=== PATIENT | male | born 1950 | race Caucasian/White ===

== ENCOUNTER → 2020-09-23 | Outpatient (CLI) | payer MEDICARE, OTHER ==
[~2020-09-23] MED LIST: ACUL0.5S OS; TIMO0.5S29 OS
== END ==
LOC: M LABSMTC 12:59
PROVIDERS: ATTEND Anesthesiology
DX: Z20.828 Contact with and (suspected) exposure to other viral communicable diseases (principal); Z11.59 Encounter for screening for other viral diseases

== ENCOUNTER 2020-09-28 09:56 | Day surgery (SDC) | payer MEDICARE ==
[~2020-09-28] VITALS: Ht 190.5 cm; Wt 87.6 kg
[~2020-09-28 09:56] MED LIST changes: +NS 1,000 ML IV ONE
[2020-09-28] MEDS ORDERED: fentaNYL 100 MCG/2 ML INJECTION (J3010) As Ordered ONE (12:32)
[2020-09-28] MEDS ORDERED: propofoL 200 MG/20 ML VIAL As Ordered ONE ×2 (12:38→12:55)
[2020-09-28] MEDS ORDERED: LIDOCAINE 2% 100MG/5ML SDV (FOR ANES.) As Ordered ONE (12:38)
--- NOTE | 2020-09-28 12:44 | ROOR ---
Patient Name: Farshad Wong Procedure Date: 09/28/2020 12:27 PM Date of : 1950 Age: 70 Room: [facility] Gender: Male Note Status: Finalized Procedure: Upper Endoscopy + Biopsies Indications: Family history of gastric cancer Providers: Mahendra Meadows MD Referring MD: DONNA AYALA JR, MD Requesting Provider: Medicines: Monitored Anesthesia Care Complications: No immediate complications. Procedure: Pre-Anesthesia Assessment: - The heart rate, respiratory rate, oxygen saturations, blood pressure, adequacy of pulmonary ventilation, and response to care were monitored throughout the procedure. The Endoscope was introduced through the mouth, and advanced to the second part of duodenum. The upper GI endoscopy was accomplished without difficulty. The patient tolerated the procedure well. Findings: The Z-line was regular and was found 45 cm from the incisors. Multiple biopsies were obtained with cold forceps for evaluation to rule out Headley's Esophagus randomly at the gastroesophageal junction. Localized mild inflammation characterized by congestion (edema) and erosions was found on the greater curvature of the stomach. Biopsies were taken with a cold forceps for Helicobacter pylori testing. The exam of the duodenum was otherwise normal. Impression: - Z-line regular, 45 cm from the incisors. - Mucosal changes suspicious for gastritis. Biopsied. - Multiple biopsies were obtained at the gastroesophageal junction. - The examination was otherwise normal. Recommendation: - Patient has a contact number available for emergencies. The signs and symptoms of potential delayed complications were discussed with the patient. Return to normal activities tomorrow. Written discharge instructions were provided to the patient. - High fiber diet. - Discharge patient to home. - Follow an antireflux regimen. - Continue present medications. - Await pathology results. - Telephone GI clinic for pathology results in 1 week. - Return to referring physician. - The findings and recommendations were discussed with the patient's family. Procedure Code(s): --- Professional --- 38569, Esophagogastroduodenoscopy, flexible, transoral; with biopsy, single or multiple Diagnosis Code(s): --- Professional --- K31.89, Other diseases of stomach and duodenum Z80.0, Family history of malignant neoplasm of digestive organs CPT copyright 2019 [employer]. All rights reserved. The codes documented in this report are preliminary and upon rn triage review may be revised to meet current compliance requirements. Mahendra Meadows MD Mahendra Meadows MD 09/28/2020 12:43:46 PM Electronically signed by Mahendra Meadows MD Number of Addenda: 0 Note Initiated On: 09/28/2020 12:27 PM Estimated Blood Loss: Estimated blood loss: none.
--- NOTE | 2020-09-28 13:00 | ROOR ---
Patient Name: Farshad Wong Procedure Date: 09/28/2020 12:28 PM Date of : 1950 Age: 70 Room: [facility] Gender: Male Note Status: Finalized Procedure: Total Colonoscopy to Cecum + ileoscopy Indications: High risk colon cancer surveillance: Personal history of colonic polyps, Last colonoscopy: 2012 Providers: Mahendra Meadows MD Referring MD: DONNA AYALA JR, MD Requesting Provider: Medicines: Monitored Anesthesia Care Complications: No immediate complications. Procedure: Pre-Anesthesia Assessment: - The heart rate, respiratory rate, oxygen saturations, blood pressure, adequacy of pulmonary ventilation, and response to care were monitored throughout the procedure. The Colonoscope was introduced through the anus and advanced to the terminal ileum, with identification of the appendiceal orifice and IC valve. The colonoscopy was performed without difficulty. The patient tolerated the procedure well. The quality of the bowel preparation was excellent. Findings: The perianal and digital rectal examinations were normal. Non-bleeding internal hemorrhoids were found during retroflexion. The hemorrhoids were small and Grade I (internal hemorrhoids that do not prolapse). The exam was otherwise without abnormality on direct and retroflexion views. The terminal ileum appeared normal. The exam was otherwise without abnormality. Impression: - Non-bleeding internal hemorrhoids. - The examination was otherwise normal on direct and retroflexion views. - The examined portion of the ileum was normal. - The examination was otherwise normal. - No specimens collected. - The exam was otherwise normal to the cecum. Recommendation: - Patient has a contact number available for emergencies. The signs and symptoms of potential delayed complications were discussed with the patient. Return to normal activities tomorrow. Written discharge instructions were provided to the patient. - High fiber diet. - Discharge patient to home. - Continue present medications. - Repeat colonoscopy in 5 years for surveillance. - Return to referring physician. - The findings and recommendations were discussed with the patient's family. Procedure Code(s): --- Professional --- G0105, Colorectal cancer screening; colonoscopy on individual at high risk Diagnosis Code(s): --- Professional --- Z86.010, Personal history of colonic polyps K64.0, First degree hemorrhoids CPT copyright 2019 [employer]. All rights reserved. The codes documented in this report are preliminary and upon car audio installer review may be revised to meet current compliance requirements. Mahendra Meadows MD Mahendra Meadows MD 09/28/2020 1:00:19 PM Electronically signed by Mahendra Meadows MD Number of Addenda: 0 Note Initiated On: 09/28/2020 12:28 PM Estimated Blood Loss: Estimated blood loss: none.
[2020-09-28 13:25] VITALS: BP 132/8
== END 2020-09-28 13:27 | disposition home or self-care (01) ==
LOC: M OPP 09:56
PROVIDERS: ATTEND Internal Medicine Gastroenterology
DX: Z12.11 Encounter for screening for malignant neoplasm of colon (principal); Z86.010 Personal history of colon polyps; Z80.0 Family history of malignant neoplasm of digestive organs; K64.0 First degree hemorrhoids; K31.89 Other diseases of stomach and duodenum; K29.70 Gastritis, unspecified, without bleeding; Z79.899 Other long term (current) drug therapy; Z87.891 Personal history of nicotine dependence
CPT/HCPCS: 43239; 88305; 88342; G0105; J3010

== ENCOUNTER → 2022-06-15 | Outpatient (CLI) | payer MEDICARE ==
[~2022-06-15] MED LIST changes: -NS 1,000 ML IV ONE
== END ==
LOC: M WUC 12:51
PROVIDERS: ATTEND Internal Medicine
DX: M54.59 Other low back pain (principal)

== ENCOUNTER → 2022-07-26 | Outpatient (CLI) | payer MEDICARE | LOC: M RAD 09:14 | PROVIDERS: ATTEND Internal Medicine | DX: I10 Essential (primary) hypertension (principal) ==

== ENCOUNTER → 2024-07-10 | Outpatient (CLI) | payer MEDICARE ==
[~2024-07-10] MED LIST changes: +TIMO0.5S20 OS; -TIMO0.5S29 OS
== END ==
LOC: M WUC 09:38
PROVIDERS: ATTEND Internal Medicine
DX: M51.360 Other intervertebral disc degeneration, lumbar region with discogenic back pain only (principal); M25.78 Osteophyte, vertebrae